=== PATIENT | male | born 1935 | race Caucasian/White ===

== ENCOUNTER → 2024-04-22 | Outpatient (CLI) | payer OTHER ==
[2024-04-22 14:22] LABS: ALBUMIN 3.9 g/dL (3.5-5.0); BILIRUBIN,TOTAL 0.7 mg/dL (0.2-1.0); CREATININE 1.2 mg/dL (0.5-1.3); THYROID STIMULATING HORMONE 0.91 uIU/mL (0.36-3.74); TOTAL PROTEIN, SERUM 7.6 g/dL (6.0-8.3)
[2024-04-22 14:44] LABS: ADD UA MICROSCOPIC NO; APPEARANCE,URINE CLEAR (CLEAR); BILIRUBIN,URINE NEGATIVE (NEGATIVE); COLOR,URINE LIGHT-YELLOW (YELLOW); GLUCOSE, URINE (UA) NEGATIVE (NEGATIVE); KETONES,URINE NEGATIVE (NEGATIVE); LEUKOCYTE ESTERASE ,URINE NEGATIVE Leu/uL (NEGATIVE); NITRATE,URINE NEGATIVE (NEGATIVE); OCCULT BLOOD,URINE NEGATIVE (NEGATIVE); PH,URINE 5.5 (5.0-8.0); PROTEIN,URINE NEGATIVE (NEGATIVE); UROBILINOGEN,URINE 0.2 mg/dL (0.2-1.0)
--- NOTE | 2024-04-22 14:54 | HMCSR ---
APPROVED REPORT EXAM: Two-dimensional and M-mode echocardiogram with Doppler and color Doppler. 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 2D Dimensions RVDd3.8 cmLVEF(%)56.8 (>50%)LVED Vol(simp.)82.2 mL IVSd0.7 (0.7-1.1cm)FS(%)30 %LVES Vol(simp.)40.2 mL LVDd4.4 (3.8-5.6cm)LA (2D)4.1 (1.6-4.0cm)LVEF(%, simp.)51 % PWd0.8 (0.7-1.1cm)Ao Root(2D)3.2 (2.0-3.7cm)LA ESV INDEX (4CH)18.00 mL/m2 IVSs1.1 cmLVOT diam2.2 (1.8-2.4cm)LA ESV INDEX (2CH)25.80 mL/m2 LVDs3.1 (2.5-4.0cm)LA ESV INDEX (BP)19.70 mL/m2 PWs1.1 cm M-Mode Dimensions EPSS0.9 cm LA (MM)3.9 (1.6-4.0cm) Ao Root(MM)3.4 (2.0-3.7cm) Aortic Valve AoV VTI0.2 mAo Mean GR2.0 mmHgLVOT VTI0.13 m FERCHO (VMAX)2.6 cm2Al P1/2T602 msAVA (VTI) 2.6 cm2 Mitral Valve MV E Vmax37.8 cm/sDECEL Wpsr591 ms MV A Vmax76.6 cm/sP 1/2 T57 ms E/A ratio0.5MVA (PHT)3.8 cm2 TDI E/E' Medial8.6 Medial E' Peak V4.40 cm/s Pulmonary Valve PV VTI0.12 mPV Mean GR1 mmHg Tricuspid Valve TR Vmax2.2 m/s TR Peak GR18.9 mmHg Left Ventricle The left ventricle is normal size. There is normal left ventricular wall thickness. LVEF is 50-55%. T he left ventricular diastolic function is normal. Right Ventricle The right ventricle is normal size. The right ventricular systolic function is normal. Atria The left atrium size is normal. The right atrium size is normal. Aortic Valve The aortic valve is normal in structure. Trace aortic regurgitation. There is no aortic valvular sten osis. Mitral Valve The mitral valve is normal in structure. Mitral regurgitation is trace. There is no mitral valve sten osis. Tricuspid Valve The tricuspid valve is normal in structure. There is no tricuspid valve regurgitation noted. Pulmonic Valve The pulmonary valve is normal in structure. There is no pulmonic valvular regurgitation. Great Vessels The aortic root is normal in size. IVC is not well visualized. Pericardium There is no pericardial effusion. Other Information Quality : Fair Conclusion LVEF is 50-55%. The left ventricular diastolic function is normal. Trace aortic regurgitation.
== END | disposition home or self-care (01) ==
LOC: RAH 12:49
PROVIDERS: ATTEND Chiropractor
DX: I51.89 Other ill-defined heart diseases (principal); I51.9 Heart disease, unspecified; E11.9 Type 2 diabetes mellitus without complications
CPT/HCPCS: 36415; 80053; 81003; 84439; 84443; 84481; 93306